=== PATIENT | female | born 1990 | race Caucasian/White ===

== ENCOUNTER 2018-01-27 09:27 | Emergency (ER) | payer OTHER ==
[~2018-01-27] VITALS: Ht 162.6 cm; Wt 71.5 kg
[~2018-01-27 09:27] MED LIST: ADDERALL30 MG PO; AMOXICILLIN875 MG PO; CIPROFLOXACIN500 M1 PO; DEPO ESTRADIO5 MG/ML IM; ELIMITE 5% CREA60 GM TP; KEFLEX500 MG PO; LEVOFLOXACIN500 MG PO; LIDOCAINE20 MG/1 M5 MM; MEDROL DOSEPAK4 MG PO; METHADOSE10 MG PO; METHADOSE10 MG/1 ML PO; MOTRIN800 MG PO; OXYCODONE HCL5 MG PO; PROMETHAZINE HC25 M1 PO; TAMSULOSIN HCL0.4 MG PO; TRAZODONE HCL50 MG PO; ZANTAC150 MG PO; ZOFRAN4 MG PO
[2018-01-27] MEDS ORDERED: PERIDEX473 ML MM (10:26)
[2018-01-27] MEDS ORDERED: AUGMENTIN875 MG PO (10:26)
[2018-01-27] MEDS ORDERED: NAPROSYN500 MG PO (10:26)
[2018-01-27 10:52] VITALS: BP 158/80
== END 2018-01-27 10:52 | disposition home or self-care (01) ==
LOC: EME 09:27
DX: K02.9 Dental caries, unspecified (principal); K03.81 Cracked tooth; H66.91 Otitis media, unspecified, right ear; F17.200 Nicotine dependence, unspecified, uncomplicated; Z71.6 Tobacco abuse counseling
CPT/HCPCS: 99281; 99282

== ENCOUNTER 2018-04-30 09:38 | Emergency (ER) | payer OTHER ==
[~2018-04-30] VITALS: Ht 157.5 cm; Wt 68.7 kg
[~2018-04-30 09:38] MED LIST changes: +AUGMENTIN875 MG PO; +NAPROSYN500 MG PO; +PERIDEX473 ML MM
[2018-04-30 10:19] LABS: HEMATOCRIT 47.2 % (36.0-46.0); HEMOGLOBIN 16.2 G/DL (11.9-15.5); MCH 29.9 PG (29.0-34.0); MCHC 34.3 G/DL (30.0-36.0); MCV 87.1 FL (83-99); PLATELET COUNT 291 K/uL (156-360); RBC DIS.WIDTH-CV 13.8 % (11.8-14.6); RBC DIS.WIDTH-SD 44.5 % (39-53); RED BLOOD COUNT 5.42 M/uL (3.80-5.20); WHITE BLOOD COUNT 9.1 K/uL (4.1-10.2)
[2018-04-30 10:30] LABS: ALBUMIN 4.5 g/dL (3.2-4.8); CHLORIDE 101 mEq/L (99-109); POTASSIUM 4.3 mEq/L (3.7-5.4); SODIUM 141 mEq/L (136-147)
[2018-04-30 10:32] LABS: GLUCOSE 89 mg/dL (70-99); TOTAL PROTEIN 8.2 g/dL (6.4-8.3)
[2018-04-30 10:34] LABS: TOTAL BILIRUBIN 0.4 mg/dL (0.0-1.0)
[2018-04-30 10:36] LABS: ALKALINE PHOSPHATASE 92 IU/L (3-129); CREATININE 0.9 mg/dL (0.6-1.3); GFR ESTIMATE (CALCULATED) > 59 mL/min/
[2018-04-30 10:37] LABS: UREA NITROGEN (BUN) 12 mg/dL (9-23)
[2018-04-30 10:38] LABS: AST (GOT) 16 IU/L (2-34)
[2018-04-30 10:39] LABS: ALT (GPT) 11 IU/L (3-49)
[2018-04-30 10:47] LABS: QUANTITATIVE HCG < 4.0 MIU/ML
[2018-04-30 11:20] LABS: APPEARANCE SL.HAZY ((CLEAR)); BILIRUBIN NEGATIVE; BLOOD NEGATIVE; COLOR YELLOW ((YELLOW)); GLUCOSE (STRIP) NEGATIVE; KETONES NEGATIVE; LEUKOCYTES NEGATIVE; NITRITE NEGATIVE; PROTEIN (STRIP) NEGATIVE; SPECIFIC GRAVITY 1.019 (1.000-1.030); UROBILINOGEN 0.2 MG/DL (0.2-1.0)
[2018-04-30 11:24] LABS: BACTERIA RARE /HPF; EPITHELIAL CELLS RARE /HPF; MUCUS TRACE /LPF; RED BLOOD CELLS 0-5 /HPF (0-5); UCUL ADDED? NO; WHITE BLOOD CELLS 0-5 /HPF (0-5)
[2018-04-30] MEDS ORDERED: CLONIDINE HCL0.1 MG PO (13:24)
[2018-04-30] MEDS ORDERED: ZOFRAN4 MG PO (13:24)
[2018-04-30 13:30] VITALS: BP 122/89
== END 2018-04-30 14:00 | disposition left against medical advice (07) ==
LOC: EME 09:38
DX: F11.23 Opioid dependence with withdrawal (principal); I10 Essential (primary) hypertension; F41.9 Anxiety disorder, unspecified; F32.9 Major depressive disorder, single episode, unspecified; Z87.442 Personal history of urinary calculi; F17.200 Nicotine dependence, unspecified, uncomplicated; Z88.5 Allergy status to narcotic agent
CPT/HCPCS: 74176; 80053; 81003; 84702; 85027; 99281; 99285; J1885; J2405

== ENCOUNTER 2018-05-04 23:25 | Emergency (ER) | payer OTHER ==
[~2018-05-04] VITALS: Ht 157.5 cm; Wt 66.9 kg
[~2018-05-04 23:25] MED LIST changes: +CLONIDINE HCL0.1 MG PO
[2018-05-05 00:58] LABS: BASOPHIL (%) 0.9 % (0-1); BASOPHIL COUNT 0.1 K/uL (0-0.1); EOSINOPHIL (%) 0 % (0-5); HEMATOCRIT 42.4 % (36.0-46.0); IMMATURE GRANULOCYTE (%) 0.4 % (0.0-0.7); LYMPHOCYTE (%) 26.9 % (15-42); LYMPHOCYTE COUNT 2.9 K/uL (1.0-2.8); MCH 29.5 PG (29.0-34.0); MCHC 33.5 G/DL (30.0-36.0); MONOCYTE (%) 7.7 % (3-12); MONOCYTE COUNT 0.8 K/uL (0-0.8); NEUTROPHIL (%) 64.1 % (45-76); NEUTROPHIL COUNT 6.9 K/uL (1.8-6.4); PLATELET COUNT 255 K/uL (156-360); RBC DIS.WIDTH-CV 13.8 % (11.8-14.6); RED BLOOD COUNT 4.82 M/uL (3.80-5.20); WHITE BLOOD COUNT 10.8 K/uL (4.1-10.2)
[2018-05-05 00:59] LABS: HEMOGLOBIN 14.2 G/DL (11.9-15.5)
[2018-05-05 01:10] LABS: ALBUMIN 4.1 g/dL (3.2-4.8)
[2018-05-05 01:11] LABS: CHLORIDE 102 mEq/L (99-109); POTASSIUM 3.5 mEq/L (3.7-5.4); SODIUM 137 mEq/L (136-147)
[2018-05-05 01:13] LABS: GLUCOSE 101 mg/dL (70-99); TOTAL PROTEIN 7.1 g/dL (6.4-8.3)
[2018-05-05 01:15] LABS: TOTAL BILIRUBIN 0.3 mg/dL (0.0-1.0)
[2018-05-05 01:16] LABS: ALKALINE PHOSPHATASE 89 IU/L (3-129)
[2018-05-05 01:17] LABS: CREATININE 0.9 mg/dL (0.6-1.3); GFR ESTIMATE (CALCULATED) > 59 mL/min/
[2018-05-05 01:18] LABS: UREA NITROGEN (BUN) 17 mg/dL (9-23)
[2018-05-05 01:20] LABS: LIPASE 20 U/L (1.0-51.0)
[2018-05-05 01:26] LABS: ALT (GPT) 46 IU/L (3-49); AST (GOT) 37 IU/L (2-34)
[2018-05-05 01:30] LABS: QUANTITATIVE HCG < 4.0 MIU/ML
[2018-05-05 01:31] LABS: TROP-I INTERPRETATION NEGATIVE; TROPONIN-I < 0.01 ng/mL (0.0-0.30)
[2018-05-05] MEDS ORDERED: PEPCID20 MG PO (02:07)
[2018-05-05 03:48] VITALS: BP 112/71
== END 2018-05-05 03:50 | disposition home or self-care (01) ==
LOC: EME → EDBD 23:25 → EME 23:25
PROVIDERS: Emergency Medicine
DX: K21.9 Gastro-esophageal reflux disease without esophagitis (principal); T76.11XA Adult physical abuse, suspected, initial encounter; F43.23 Adjustment disorder with mixed anxiety and depressed mood; I10 Essential (primary) hypertension; F17.200 Nicotine dependence, unspecified, uncomplicated
CPT/HCPCS: 80053; 83690; 84484; 84702; 85025; 90839; 93005; 99281; 99284; J2405; J7030

== ENCOUNTER 2018-05-07 02:33 | Emergency (ER) | payer OTHER ==
[~2018-05-07] VITALS: Ht 157.5 cm; Wt 67.0 kg
[~2018-05-07 02:33] MED LIST changes: +PEPCID20 MG PO
[2018-05-07 03:17] LABS: HEMATOCRIT 43.8 % (36.0-46.0); HEMOGLOBIN 15.4 G/DL (11.9-15.5); MCH 30.4 PG (29.0-34.0); MCHC 35.2 G/DL (30.0-36.0); MCV 86.4 FL (83-99); PLATELET COUNT 300 K/uL (156-360); RBC DIS.WIDTH-CV 13.5 % (11.8-14.6); RBC DIS.WIDTH-SD 42.4 % (39-53); RED BLOOD COUNT 5.07 M/uL (3.80-5.20)
[2018-05-07 03:28] LABS: CHLORIDE 107 mEq/L (99-109); POTASSIUM 3.5 mEq/L (3.7-5.4); SODIUM 140 mEq/L (136-147)
[2018-05-07 03:30] LABS: GLUCOSE 111 mg/dL (70-99)
[2018-05-07 03:34] LABS: GFR ESTIMATE (CALCULATED) > 59 mL/min/; UREA NITROGEN (BUN) 13 mg/dL (9-23)
[2018-05-07 04:45] LABS: AMPHETAMINE NEGATIVE (500 ng/mL); BARBITURATES PRESUMPTIVE POSITIVE (200 ng/mL); BENZODIAZEPINES NEGATIVE (150 ng/mL); BUPRENORPHINE NEGATIVE (10 ng/mL); COCAINE PRESUMPTIVE POSITIVE (150 ng/mL); METHADONE NEGATIVE (200 ng/mL); METHAMPHETAMINE NEGATIVE (500 ng/mL); OPIATES (MORPHINE) NEGATIVE (100 ng/mL); OXYCODONE NEGATIVE (100 ng/mL); PHENCYCLIDINE NEGATIVE (25 ng/mL); PROPOXYPHENE NEGATIVE (300 ng/mL); THC CANNABINOIDS NEGATIVE (50 ng/mL); TRICYCLIC ANTIDEPRESSANTS NEGATIVE (300 ng/mL)
[2018-05-07 04:54] LABS: APPEARANCE CLOUDY ((CLEAR)); BILIRUBIN NEGATIVE; BLOOD LARGE; COLOR YELLOW ((YELLOW)); GLUCOSE (STRIP) NEGATIVE; KETONES 5; LEUKOCYTES NEGATIVE; NITRITE POSITIVE; PROTEIN (STRIP) 30; SPECIFIC GRAVITY 1.025 (1.000-1.030)
[2018-05-07 05:12] LABS: TROP-I INTERPRETATION NEGATIVE; TROPONIN-I < 0.01 ng/mL (0.0-0.30)
[2018-05-07] MEDS ORDERED: CATAPRES0.1 MG PO (05:17)
[2018-05-07] MEDS ORDERED: BACTRIM,SEPT1 TABLET PO (05:20)
[2018-05-07 05:28] LABS: BACTERIA 3+ /HPF; CALCIUM OXALATE CRYSTALS 4+ /HPF; EPITHELIAL CELLS 1+ /HPF; MUCUS 2+ /LPF; RED BLOOD CELLS TNTC /HPF (0-5); UCUL ADDED? YES
[2018-05-07 06:03] VITALS: BP 133/93
== END 2018-05-07 06:05 | disposition home or self-care (01) ==
LOC: EME → EDBD 02:33 → EME 06:05
PROVIDERS: Emergency Medicine
DX: R07.89 Other chest pain (principal); F11.23 Opioid dependence with withdrawal; N30.91 Cystitis, unspecified with hematuria; B96.20 Unspecified Escherichia coli [E. coli] as the cause of diseases classified elsewhere; F19.10 Other psychoactive substance abuse, uncomplicated; E86.0 Dehydration; F17.200 Nicotine dependence, unspecified, uncomplicated; Z87.442 Personal history of urinary calculi; Z88.5 Allergy status to narcotic agent
CPT/HCPCS: 71046; 80048; 81003; 84484; 84999; 85027; 85379; 87077; 87086; 87186; 93005; 99281; 99285; J7030